=== PATIENT | female | born 1975 | race Caucasian/White ===

== ENCOUNTER 2016-08-09 21:49 | Observation (INO) | payer SELFPAY ==
[~2016-08-09] VITALS: Ht 160 cm; Wt 52.0 kg
[2016-08-09 22:02] VITALS: BP 110/59; PULSE 80; RESP 16; TEMP 97.9; O2SAT 98
[2016-08-09] MEDS ORDERED: SODIUM CHLOR 0.9% 1000 ML INJ 1,000 ML IV SCH ×2 (22:08→23:42)
[2016-08-09] MEDS ORDERED: SODIUM CHLORIDE 0.9% FLUSH 5 ML FLUSH IV FLUSH PRN (22:15)
--- NOTE | 2016-08-09 22:28 | PD ---
HPI Chief Complaint: Anxiety Time Seen by Provider: 22:00 Travel History International Travel<30 days: No Contact w/Intl Traveler<30days: No Traveled to known affect area: No History of Present Illness HPI Patient is a 40-year-old female presenting to the emergency department via EMS. Patient presents with vague complaints. She thought her car today [place] she felt as if the car next to her was pressuring her to get over, she attempted to get over but the steering wheel vibrated she stated that it felt like it was vibrating wrong and she got off the [place] went to a gas station parked her car smoke cigarettes and she felt a zap on her shoulder. She reports seeing a beetle-like bug on her car seat. Patient denies any psychiatric history, she denies any trouble sleeping or eating. She was driving from [place] to [place]. She does report being in an emergency department last week with menstrual issues, she reports a negative workup at that time. She denies any significant past medical history. [facility] Past Medical History Medical History: Denies Significant Hx ?: Not LMP: 07/31/16 Past Surgical History Surgical History: No Previous Surgery Social History Alcohol Use: Yes (rare) Tobacco Use: Yes Substance Use: Yes (occasional marijuana) Allergies-Medications (Allergen,Severity, Reaction): Coded Allergies: No Known Allergies (Unverified , 08/09/16) Reported Meds & Prescriptions Reported Meds & Active Scripts Active No Active Prescriptions or Reported Medications Review of Systems Except as stated in HPI: all other systems reviewed are Neg Psychiatric: Positive: Anxiety Physical Exam Narrative GENERAL: Well-developed, well-nourished, alert female. Resting comfortably in no acute distress. Appears anxious. SKIN: Warm and dry. HEAD: Atraumatic. Normocephalic. EYES: Pupils equal and round. No scleral icterus. No injection or drainage. ENT: No nasal bleeding or discharge. Mucous membranes pink and moist. NECK: Trachea midline. No JVD. CARDIOVASCULAR: Regular rate and rhythm. RESPIRATORY: No accessory muscle use. Clear to auscultation. Breath sounds equal bilaterally. GASTROINTESTINAL: Abdomen soft, non-tender, nondistended. Hepatic and splenic margins not palpable. MUSCULOSKELETAL: Extremities without clubbing, cyanosis, or edema. No obvious deformities. NEUROLOGICAL: Awake and alert. No obvious cranial nerve deficits. Motor grossly within normal limits. Five out of 5 muscle strength in the arms and legs. Normal speech. PSYCHIATRIC: Anxious mood and affect; insight and judgment normal. Data Data Last Documented VS Vital Signs Date Time Temp Pulse Resp B/P Pulse Ox O2 Delivery O2 Flow Rate FiO2 08/09/16 23:08 97.9 83 16 100/58 97 Room Air Orders Complete Blood Count With Diff (08/09/16 22:08) Comprehensive Metabolic Panel (08/09/16 22:08) Creatine Kinase (Cpk) (08/09/16 22:08) Thyroid Stimulating Hormone (08/09/16 22:08) Urinalysis - C+S If Indicated (08/09/16 22:08) Blood Glucose (08/09/16 22:08) Ecg Monitoring (08/09/16 22:08) Iv Access Insert/Monitor (08/09/16 22:08) Oximetry (08/09/16 22:08) Sodium Chloride 0.9% Flush (Ns Flush) (08/09/16 22:15) Sodium Chlor 0.9% 1000 Ml Inj (Ns 1000 M (08/09/16 22:08) Drug Screen, Random Urine (08/09/16 22:09) Psych Screen (08/09/16 22:16) Urine Culture (08/09/16 22:24) Ceftriaxone Inj (Rocephin Inj) (08/09/16 23:00) Admit Order (Ed Use Only) (08/09/16 23:42) Labs Laboratory Tests Test 08/09/16 22:24 White Blood Count 5.7 TH/MM3 Red Blood Count 4.00 MIL/MM3 Hemoglobin 12.4 GM/DL Hematocrit 35.8 % Mean Corpuscular Volume 89.7 FL Mean Corpuscular Hemoglobin 31.1 PG Mean Corpuscular Hemoglobin 34.7 % Concent Red Cell Distribution Width 13.3 % Platelet Count 227 TH/MM3 Mean Platelet Volume 8.7 FL Neutrophils (%) (Auto) 58.6 % Lymphocytes (%) (Auto) 28.1 % Monocytes (%) (Auto) 11.1 % Eosinophils (%) (Auto) 1.7 % Basophils (%) (Auto) 0.5 % Neutrophils # (Auto) 3.3 TH/MM3 Lymphocytes # (Auto) 1.6 TH/MM3 Monocytes # (Auto) 0.6 TH/MM3 Eosinophils # (Auto) 0.1 TH/MM3 Basophils # (Auto) 0.0 TH/MM3 CBC Comment DIFF FINAL Differential Comment Urine Color YELLOW Urine Turbidity CLOUDY Urine pH 7.5 Urine Specific [place] 1.009 Urine Protein 100 mg/dL Urine Glucose (UA) NEG mg/dL Urine Ketones NEG mg/dL Urine Occult Blood LARGE Urine Nitrite NEG Urine Bilirubin NEGATIVE Urine Urobilinogen 0.2 MG/DL Urine Leukocyte Esterase LARGE Urine RBC 10-14 /hpf Urine WBC 9-14 /hpf Urine Squamous Epithelial > 8 /hpf Cells Urine Bacteria FEW /hpf Urine White Blood Cell Casts /lpf Microscopic Urinalysis Comment CATH-CULTURE IND Sodium Level 140 MEQ/L Potassium Level 3.9 MEQ/L Chloride Level 106 MEQ/L Carbon Dioxide Level 27.9 MEQ/L Anion Gap 6 MEQ/L Blood Urea Nitrogen 6 MG/DL Creatinine 0.70 MG/DL Estimat Glomerular Filtration 93 ML/MIN Rate Random Glucose 98 MG/DL Calcium Level 8.9 MG/DL Total Bilirubin 0.3 MG/DL Aspartate Amino Transf 16 U/L (AST/SGOT) Alanine Aminotransferase 13 U/L (ALT/SGPT) Alkaline Phosphatase 44 U/L Total Creatine Kinase 60 U/L Total Protein 7.0 GM/DL Albumin 3.8 GM/DL Thyroid Stimulating Hormone 1.660 uIU/ML 3rd Gen [facility] Medical Decision Making Medical Screen Exam Complete: Yes Emergency Medical Condition: Yes Interpretation(s) Vital Signs Date Time Temp Pulse Resp B/P Pulse Ox O2 Delivery O2 Flow Rate FiO2 08/09/16 22:02 97.9 80 16 110/59 98 Differential Diagnosis Mood disorder versus substance abuse versus psychosis versus UTI versus other Narrative Course Patient is a 40-year-old female who is brought in by EMS after suffering what appeared to be a panic attack [place]. Patient appeared altered on arrival and was not answering questions entirely appropriately. Her vital signs are stable, labs and imaging ordered and pending. Patient was traveling from [place] to [place], she did purchase a new vehicle and [employer] today. She has no suicidal or homicidal ideations. Patient denies any previous psychiatric history. She endorses occasional marijuana use, none today. CBC is unremarkable Chemistry with no acute issues Urinalysis is indicative of urinary tract infection Psych screen was ordered, psychiatric aide evaluated patient. She does not feel that patient is a harm to herself or anyone else. She was answering questions appropriately for her. Patient is from [place], traveling to [place], she has no friends or family in the area. Patient is drowsy and behavior appears altered. At this time it is feasible in the patient's best interest to keep patient under observation for IV antibiotics. [facility] paged for admission. Discussed with my attending physician Dr. Gama who is in agreement with plan. Dr. Blandon accepted admission, orders placed. Pt is agreeable to plan. Diagnosis Primary Impression: Alteration of behavior in patient 21 years to 64 years of age Additional Impression: Urinary tract infection Qualified Code: N39.0 - Urinary tract infection with hematuria, site unspecified Admitting Information Admitting Physician Requests: Observation Scripts No Active Prescriptions or Reported Meds Condition: Marya Kent Aug 09, 2016 22:28
[2016-08-09 22:36] LABS: AUTOMATED NEUTROPHIL # 3.3 TH/MM3 (1.8-7.7); BASOPHIL % 0.5 % (0.0-2.0); EOSINOPHIL # 0.1 TH/MM3 (0-0.4); EOSINOPHIL % 1.7 % (0.0-4.0); HEMATOCRIT 35.8 % (35.0-46.0); HEMO FLAGS DIFF FINAL; LYMPH % 28.1 % (9.0-44.0); LYMPHOCYTE # 1.6 TH/MM3 (1.0-4.8); MEAN CELL VOLUME 89.7 FL (80.0-100.0); MEAN CORPUSCULAR HEMOGLOBIN 31.1 PG (27.0-34.0); MEAN CORPUSCULAR HGB CONC 34.7 % (32.0-36.0); MONO % 11.1 % (0.0-8.0); NEUT % 58.6 % (16.0-70.0); PLATELET COUNT 227 TH/MM3 (150-450); RED CELL DISTRIBUTION WIDTH 13.3 % (11.6-17.2); WHITE BLOOD COUNT 5.7 TH/MM3 (4.0-11.0)
[2016-08-09 22:41] LABS: BLOOD, URINE LARGE (NEG); GLUCOSE,URINE NEG (NEG); KETONE, URINE NEG (NEG); NITRITE,URINE NEG (NEG); PH, URINE 7.5 (5.0-8.5); URINE COLOR YELLOW (YELLW/STRAW)
[2016-08-09 22:42] LABS: BACTERIA, URINE FEW /hpf; SQUAMOUS EPITHELIAL CELL URINE > 8 /hpf (0-5)
[2016-08-09 22:43] LABS: COMMENT (UR) CATH-CULTURE IND; CULTURE IF INDICATED CATH CULTURE IND
[2016-08-09 22:52] LABS: ALT (GPT) 13 U/L (10-53)
[2016-08-09 22:55] LABS: ANION GAP 6 MEQ/L (5-15); AST (GOT) 16 U/L (15-37); BICARBONATE 27.9 MEQ/L (21.0-32.0); BLOOD UREA NITROGEN 6 MG/DL (7-18); CHLORIDE 106 MEQ/L (98-107); GLOMERULAR FILTRATION RATE 93 ML/MIN (>89); POTASSIUM 3.9 MEQ/L (3.5-5.1); SODIUM (NA) 140 MEQ/L (136-145)
[2016-08-09 22:57] VITALS: PULSE 70
[2016-08-09] MEDS ORDERED: cefTRIAXone INJ 2,000 MG in SODIUM CHLORIDE 0.9% INJ 100 ML IV ONE (23:00)
[2016-08-09 23:01] LABS: ALKALINE PHOSPHATASE 44 U/L (45-117); TOTAL BILIRUBIN ADULT 0.3 MG/DL (0.2-1.0)
[2016-08-09 23:04] LABS: CREATINE KINASE 60 U/L (26-192)
[2016-08-09 23:08] VITALS: BP 100/58; PULSE 83; RESP 16; TEMP 97.9; O2SAT 97
[2016-08-09] MEDS ORDERED: NALOXONE HCL 0.4 MG/ML AMP IV PRN (23:45)
[2016-08-09] MEDS ORDERED: SODIUM CHLORIDE 0.9% FLUSH 10 ML FLUSH IV FLUSH PRN (23:45)
[2016-08-09 23:55] LABS: AMPHETAMINE, URINE NEG (NEG); BARBITURATES, URINE NEG (NEG); COCAINE, URINE NEG (NEG)
[2016-08-10] MEDS ORDERED: CIPROFLOXACIN 400 MG PREMIX 200 ML IV SCH
[2016-08-10] MEDS ORDERED: SODIUM CHLORIDE 0.9% FLUSH 10 ML FLUSH IV FLUSH SCH (09:00)
[2016-08-11] MEDS ORDERED: CIPR500T2 PO (01:12)
[2016-08-11] MEDS ORDERED: METR-1 PO (01:12)
[2016-08-11] MEDS ORDERED: CIPR-9 PO (11:37)
== END 2016-08-10 01:33 | disposition left against medical advice (07) ==
LOC: NEPD 21:49 → NEDA 23:44
PROVIDERS: ADMIT Internal Medicine; ATTEND Internal Medicine
DX: N39.0 Urinary tract infection, site not specified (principal); R31.9 Hematuria, unspecified; R40.0 Somnolence; F41.9 Anxiety disorder, unspecified; F17.210 Nicotine dependence, cigarettes, uncomplicated; F12.90 Cannabis use, unspecified, uncomplicated
CPT/HCPCS: 80053; 80307; 81001; 82550; 84443; 85025; 87086; 96361; 96365; 99285; G0378; J0696; J0744; J7030

== ENCOUNTER 2016-08-10 22:47 | Emergency (ER) | payer SELFPAY ==
[~2016-08-10] VITALS: Ht 165.1 cm; Wt 65.0 kg
[2016-08-10 23:13] VITALS: BP 113/71; PULSE 85; RESP 16; TEMP 98.5; O2SAT 99
--- NOTE | 2016-08-10 23:28 | PD ---
HPI Chief Complaint: Psychiatric Symptoms Time Seen by Provider: 11:20 Travel History International Travel<30 days: No Contact w/Intl Traveler<30days: No Traveled to known affect area: No History of Present Illness HPI This is a 40-year-old female who presents via EMS for evaluation. Report is primarily obtained by paramedics. They report that the patient was found wandering around the police station today. She was apparently wandering all day long from 9 AM in the morning. On route she was complaining of various pains in her head and her chest. The paramedics also note that she had a new Dianne Sigifredo at the police station. History is somewhat limited from the patient secondary to her bizarre behavior and affect. The patient reports that she is from [place], she is traveling [place] to visit family. She does endorse some vague pain in her chest and her head which started sometime this evening. No obvious apparent aggravating or relieving factors or associated symptoms. She denies any psychiatric history. She endorses occasional marijuana use. Denies any other drug use. Per chart review this patient was seen here yesterday and was admitted for altered behavior. She apparently left AGAINST MEDICAL ADVICE early in the morning. She had a urine specimen which has no growth. No other complaints at this time. [facility] Past Medical History Anxiety: Yes Immunizations Current: Yes Tetanus Vaccination: Never Vaccinated Influenza Vaccination: No ?: Unknown Social History Alcohol Use: Yes (rare) Tobacco Use: Yes Substance Use: Yes Allergies-Medications (Allergen,Severity, Reaction): Coded Allergies: No Known Allergies (Unverified , 08/10/16) Reported Meds & Prescriptions Reported Meds & Active Scripts Active Cipro (Ciprofloxacin HCl) 500 Mg Tab 500 Mg PO BID 7 Days Review of Systems ROS Limitations: Altered Mental Status Except as stated in HPI: all other systems reviewed are Neg Physical Exam Exam Limitations: Altered Mental Status Narrative GENERAL: Well-developed well-nourished female in no acute distress SKIN: Warm and dry. HEAD: Atraumatic. Normocephalic. EYES: Pupils equal and round. No scleral icterus. No injection or drainage. ENT: No nasal bleeding or discharge. Mucous membranes pink and moist. NECK: Trachea midline. No JVD. CARDIOVASCULAR: Regular rate and rhythm. No murmur appreciated. RESPIRATORY: No accessory muscle use. Clear to auscultation. Breath sounds equal bilaterally. GASTROINTESTINAL: Abdomen soft, non-tender, nondistended. Hepatic and splenic margins not palpable. MUSCULOSKELETAL: No obvious deformities. No clubbing. NEUROLOGICAL: Awake and alert. No obvious cranial nerve deficits. Motor grossly within normal limits. Normal speech. Neck supple full range of motion. PSYCHIATRIC: Flat affect. Insight and judgment appear markedly limited. Data Data Last Documented VS Vital Signs Date Time Temp Pulse Resp B/P Pulse Ox O2 Delivery O2 Flow Rate FiO2 08/11/16 07:41 78 20 132/65 08/11/16 04:52 97 Room Air 08/10/16 23:13 98.5 Orders Electrocardiogram (08/10/16 23:20) Creatine Kinase (Cpk) (08/10/16 23:20) Troponin I (08/10/16 23:20) Chest, Single Ap (08/10/16 23:20) Ecg Monitoring (08/10/16 23:20) Iv Access Insert/Monitor (08/10/16 23:20) Oximetry (08/10/16 23:20) Sodium Chloride 0.9% Flush (Ns Flush) (08/10/16 23:30) Ed Urine Pregnancytest Poc (08/10/16 23:20) Ct Brain W/O Iv Contrast(Rout) (08/10/16 ) ^ Sitter (08/10/16 23:22) Complete Blood Count With Diff (08/10/16 23:33) Comprehensive Metabolic Panel (08/10/16 23:33) Psych Screen (08/11/16 03:00) Lorazepam (Ativan) (08/11/16 11:15) Ciprofloxacin (Cipro) (08/11/16 11:45) Labs Laboratory Tests Test 08/11/16 00:30 White Blood Count 6.0 TH/MM3 Red Blood Count 4.03 MIL/MM3 Hemoglobin 12.1 GM/DL Hematocrit 36.8 % Mean Corpuscular Volume 91.4 FL Mean Corpuscular Hemoglobin 30.1 PG Mean Corpuscular Hemoglobin 32.9 % Concent Red Cell Distribution Width 13.3 % Platelet Count 206 TH/MM3 Mean Platelet Volume 8.6 FL Neutrophils (%) (Auto) 56.0 % Lymphocytes (%) (Auto) 31.4 % Monocytes (%) (Auto) 10.1 % Eosinophils (%) (Auto) 2.0 % Basophils (%) (Auto) 0.5 % Neutrophils # (Auto) 3.4 TH/MM3 Lymphocytes # (Auto) 1.9 TH/MM3 Monocytes # (Auto) 0.6 TH/MM3 Eosinophils # (Auto) 0.1 TH/MM3 Basophils # (Auto) 0.0 TH/MM3 CBC Comment DIFF FINAL Differential Comment Sodium Level 141 MEQ/L Potassium Level 3.6 MEQ/L Chloride Level 108 MEQ/L Carbon Dioxide Level 27.0 MEQ/L Anion Gap 6 MEQ/L Blood Urea Nitrogen 4 MG/DL Creatinine 0.70 MG/DL Estimat Glomerular Filtration 93 ML/MIN Rate Random Glucose 91 MG/DL Calcium Level 8.9 MG/DL Total Bilirubin 0.3 MG/DL Aspartate Amino Transf 16 U/L (AST/SGOT) Alanine Aminotransferase 14 U/L (ALT/SGPT) Alkaline Phosphatase 42 U/L Total Creatine Kinase 47 U/L Troponin I LESS THAN 0.02 NG/ML Total Protein 7.1 GM/DL Albumin 3.9 GM/DL MDM Medical Decision Making Medical Screen Exam Complete: Yes Emergency Medical Condition: Yes Medical Record Reviewed: Yes Interpretation(s) ED urine negative Chest x-ray no acute abnormalities CBC unremarkable ekg sinus aurora rate 55, HI interval 114. Differential Diagnosis Schizophrenia, bipolar disorder, encephalitis, acute psychosis, substance induced mood disorder, meningitis, other toxic disturbance Narrative Course This is a 40-year-old female who was admitted yesterday for altered mental status but left AGAINST MEDICAL ADVICE. She presents once again after being found wandering around in the police department for several hours. She has a very bizarre affect, she is a very poor historian. Therefore the patient was placed under Tamayo act. A sitter has been ordered. She denies any psychiatric history. At the end of my shift the patient was signed out pending CT imaging and lab work for disposition, likely admission versus psychiatric consultation. Procedures EKG Prior to Arrival: Yes Diagnosis Primary Impression: Alteration of behavior in patient 21 years to 64 years of age Scripts Ciprofloxacin (Cipro)500 Mg Gra034 Mg PO BID 7 Days Ref 0 Prov:Marya Dale 08/11/16 Cm Arevalo Aug 10, 2016 23:28
[2016-08-10] MEDS ORDERED: SODIUM CHLORIDE 0.9% FLUSH 5 ML FLUSH IV FLUSH PRN (23:30)
--- NOTE | 2016-08-11 00:28 | RADRPT ---
EXAM DATE/TIME: 08/11/2016 00:11 [facility] COMPARISON: No previous studies available for comparison. INDICATIONS : Per history chest tighness as patient is despondent and doesn.t answer questions. MEDICAL HISTORY : Unobtainable SURGICAL HISTORY : Unobtainable ENCOUNTER: Initial ACUITY: 1 day PAIN SCORE: Non-responsive. LOCATION: Bilateral chest FINDINGS: A single view of the chest demonstrates the lungs to be symmetrically aerated without evidence of mas s, infiltrate or effusion. The cardiomediastinal contours are unremarkable. Osseous structures are intact. CONCLUSION: Normal examination. Right thoracic scoliosis Narciso Carlisle MD on August 11, 2016 at 0:26 Board Certified Radiologist. This report was verified electronically.
[2016-08-11 00:43] LABS: AUTOMATED NEUTROPHIL # 3.4 TH/MM3 (1.8-7.7); BASOPHIL % 0.5 % (0.0-2.0); EOSINOPHIL # 0.1 TH/MM3 (0-0.4); HEMATOCRIT 36.8 % (35.0-46.0); HEMO FLAGS DIFF FINAL; LYMPH % 31.4 % (9.0-44.0); LYMPHOCYTE # 1.9 TH/MM3 (1.0-4.8); MEAN CELL VOLUME 91.4 FL (80.0-100.0); MEAN CORPUSCULAR HEMOGLOBIN 30.1 PG (27.0-34.0); MEAN CORPUSCULAR HGB CONC 32.9 % (32.0-36.0); MONO % 10.1 % (0.0-8.0); PLATELET COUNT 206 TH/MM3 (150-450); RED BLOOD COUNT 4.03 MIL/MM3 (4.00-5.30); RED CELL DISTRIBUTION WIDTH 13.3 % (11.6-17.2)
[2016-08-11 00:47] VITALS: O2SAT 98
[2016-08-11 01:10] LABS: ALT (GPT) 14 U/L (10-53); ANION GAP 6 MEQ/L (5-15); AST (GOT) 16 U/L (15-37); BLOOD UREA NITROGEN 4 MG/DL (7-18); CHLORIDE 108 MEQ/L (98-107); GLOMERULAR FILTRATION RATE 93 ML/MIN (>89); POTASSIUM 3.6 MEQ/L (3.5-5.1); SODIUM (NA) 141 MEQ/L (136-145)
[2016-08-11] MEDS ORDERED: CIPR500T2 PO (01:12)
[2016-08-11] MEDS ORDERED: METR-1 PO (01:12)
[2016-08-11 01:13] LABS: ALKALINE PHOSPHATASE 42 U/L (45-117); TOTAL BILIRUBIN ADULT 0.3 MG/DL (0.2-1.0)
[2016-08-11 01:14] LABS: CREATINE KINASE 47 U/L (26-192)
--- NOTE | 2016-08-11 01:24 | RADRPT ---
EXAM DATE/TIME: 08/11/2016 01:16 [facility] COMPARISON: No previous studies available for comparison. INDICATIONS : Altered mental status. RADIATION DOSE: 32.99 CTDIvol (mGy) MEDICAL HISTORY : None SURGICAL HISTORY : None. ENCOUNTER: Initial ACUITY: 1 day PAIN SCALE: Non-responsive LOCATION: cranial TECHNIQUE: Multiple contiguous axial images were obtained of the head. Using automated exposure control and adj ustment of the mA and/or kV according to patient size, radiation dose was kept as low as reasonably a chievable to obtain optimal diagnostic quality images. DICOM format image data is available electro nically for review and comparison. FINDINGS: CEREBRUM: The ventricles are normal for age. No evidence of midline shift, mass lesion, hemorrhage or acute in farction. No extra-axial fluid collections are seen. Bilateral basal ganglia calcifications are note d POSTERIOR FOSSA: The cerebellum and brainstem are intact. The 4th ventricle is midline. The cerebellopontine angle i s unremarkable. EXTRACRANIAL: The visualized portion of the orbits is intact. SKULL: The calvaria is intact. No evidence of skull fracture. CONCLUSION: Normal examination. Narciso Carlisle MD on August 11, 2016 at 1:23 Board Certified Radiologist. This report was verified electronically.
--- NOTE | 2016-08-11 01:59 | PD ---
Physical Exam Date Seen by Provider: Aug 11, 2016 Time Seen by Provider: 01:56 Data Data Last Documented VS Vital Signs Date Time Temp Pulse Resp B/P Pulse Ox O2 Delivery O2 Flow Rate FiO2 08/11/16 00:47 98 Room Air 08/10/16 23:13 98.5 85 16 113/71 Orders Electrocardiogram (08/10/16 23:20) Creatine Kinase (Cpk) (08/10/16 23:20) Troponin I (08/10/16 23:20) Chest, Single Ap (08/10/16 23:20) Ecg Monitoring (08/10/16 23:20) Iv Access Insert/Monitor (08/10/16 23:20) Oximetry (08/10/16 23:20) Sodium Chloride 0.9% Flush (Ns Flush) (08/10/16 23:30) Ed Urine Pregnancytest Poc (08/10/16 23:20) Ct Brain W/O Iv Contrast(Rout) (08/10/16 ) ^ Sitter (08/10/16 23:22) Complete Blood Count With Diff (08/10/16 23:33) Comprehensive Metabolic Panel (08/10/16 23:33) Labs Laboratory Tests Test 08/11/16 00:30 White Blood Count 6.0 TH/MM3 Red Blood Count 4.03 MIL/MM3 Hemoglobin 12.1 GM/DL Hematocrit 36.8 % Mean Corpuscular Volume 91.4 FL Mean Corpuscular Hemoglobin 30.1 PG Mean Corpuscular Hemoglobin 32.9 % Concent Red Cell Distribution Width 13.3 % Platelet Count 206 TH/MM3 Mean Platelet Volume 8.6 FL Neutrophils (%) (Auto) 56.0 % Lymphocytes (%) (Auto) 31.4 % Monocytes (%) (Auto) 10.1 % Eosinophils (%) (Auto) 2.0 % Basophils (%) (Auto) 0.5 % Neutrophils # (Auto) 3.4 TH/MM3 Lymphocytes # (Auto) 1.9 TH/MM3 Monocytes # (Auto) 0.6 TH/MM3 Eosinophils # (Auto) 0.1 TH/MM3 Basophils # (Auto) 0.0 TH/MM3 CBC Comment DIFF FINAL Differential Comment Sodium Level 141 MEQ/L Potassium Level 3.6 MEQ/L Chloride Level 108 MEQ/L Carbon Dioxide Level 27.0 MEQ/L Anion Gap 6 MEQ/L Blood Urea Nitrogen 4 MG/DL Creatinine 0.70 MG/DL Estimat Glomerular Filtration 93 ML/MIN Rate Random Glucose 91 MG/DL Calcium Level 8.9 MG/DL Total Bilirubin 0.3 MG/DL Aspartate Amino Transf 16 U/L (AST/SGOT) Alanine Aminotransferase 14 U/L (ALT/SGPT) Alkaline Phosphatase 42 U/L Total Creatine Kinase 47 U/L Troponin I LESS THAN 0.02 NG/ML Total Protein 7.1 GM/DL Albumin 3.9 GM/DL [facility] Medical Record Reviewed: Yes Supervised Visit with VIKY: Yes Interpretation(s) Laboratory Tests Test 08/11/16 00:30 White Blood Count 6.0 TH/MM3 Red Blood Count 4.03 MIL/MM3 Hemoglobin 12.1 GM/DL Hematocrit 36.8 % Mean Corpuscular Volume 91.4 FL Mean Corpuscular Hemoglobin 30.1 PG Mean Corpuscular Hemoglobin 32.9 % Concent Red Cell Distribution Width 13.3 % Platelet Count 206 TH/MM3 Mean Platelet Volume 8.6 FL Neutrophils (%) (Auto) 56.0 % Lymphocytes (%) (Auto) 31.4 % Monocytes (%) (Auto) 10.1 % Eosinophils (%) (Auto) 2.0 % Basophils (%) (Auto) 0.5 % Neutrophils # (Auto) 3.4 TH/MM3 Lymphocytes # (Auto) 1.9 TH/MM3 Monocytes # (Auto) 0.6 TH/MM3 Eosinophils # (Auto) 0.1 TH/MM3 Basophils # (Auto) 0.0 TH/MM3 CBC Comment DIFF FINAL Differential Comment Sodium Level 141 MEQ/L Potassium Level 3.6 MEQ/L Chloride Level 108 MEQ/L Carbon Dioxide Level 27.0 MEQ/L Anion Gap 6 MEQ/L Blood Urea Nitrogen 4 MG/DL Creatinine 0.70 MG/DL Estimat Glomerular Filtration 93 ML/MIN Rate Random Glucose 91 MG/DL Calcium Level 8.9 MG/DL Total Bilirubin 0.3 MG/DL Aspartate Amino Transf 16 U/L (AST/SGOT) Alanine Aminotransferase 14 U/L (ALT/SGPT) Alkaline Phosphatase 42 U/L Total Creatine Kinase 47 U/L Troponin I LESS THAN 0.02 NG/ML Total Protein 7.1 GM/DL Albumin 3.9 GM/DL Last 24 hours Impressions Chest X-Ray 08/10/16 [id number] Signed Impressions: Service Date/Time: Thursday, August 11, 2016 00:11 - CONCLUSION: Normal examination. Right thoracic scoliosis Narciso Carlisle MD Head CT 08/10/16 0000 Signed Impressions: Service Date/Time: Thursday, August 11, 2016 01:16 - CONCLUSION: Normal examination. Narciso Carlisle MD Differential Diagnosis MDM: High Differential diagnoses: Schizophrenia, schizoaffective disorder, bipolar, anxiety, depression, adjustment reaction, mood disorder NOS, ODD, depressive disorder NOS, dementia, dementia with agitation, psychosis NOS, substance induced mood disorder, intermittent explosive disorder, Asperger syndrome, infection,electrolyte abnormality, malingering. Narrative Course Mental health screening discussed with the patient. Psychiatric screen ordered. The patient has been medically cleared. She is under Tamayo act. I discussed the case with Dr. Buckley the on-call hospitalist. He has declined the admission today. He feels that the patient's presentation is a psychiatric etiology and that he would be happy to be [employer] consultant if any medical issues come up. The patient's chest x-ray, CT, chemistries including troponin and EKG are negative. Patient's urine culture from yesterday is not growing any organisms at this time. I suspect this was a contaminated specimen. This is alteration of behavior inpatient 21 years to 64 years of age Diagnosis Primary Impression: Alteration of behavior in patient 21 years to 64 years of age Condition: Stable Cali Espinosa Aug 11, 2016 01:59
[2016-08-11 04:52] VITALS: BP 121/97; PULSE 78; O2SAT 97
[2016-08-11 07:41] VITALS: BP 132/65; PULSE 78; RESP 20
--- NOTE | 2016-08-11 10:04 | EKG ---
Date Performed: 08/11/2016 Time Performed: 00:48:42 PTAGE: 40 years EKG: Baseline artifact is present. Probable sinus bradycardia with short MN interval POSSIBLE RI GHT VENTRICULAR CONDUCTION DELAY BORDERLINE ECG NO PREVIOUS TRACING DOCTOR: Marcio Bishop Interpretating Date/Time 08/11/2016 10:02:55
[2016-08-11] MEDS ORDERED: LORazepam 1 MG TAB PO ONE (11:15)
[2016-08-11] MEDS ORDERED: CIPR-9 PO (11:37)
--- NOTE | 2016-08-11 11:37 | PD ---
Physical Exam Date Seen by Provider: Aug 11, 2016 Time Seen by Provider: 11:35 Narrative For full history and physical examination please see previous provider's note. I am providing patient with a prescription for ciprofloxacin due to her urinary tract infection that was diagnosed on her previous admission. Data Data Last Documented VS Vital Signs Date Time Temp Pulse Resp B/P Pulse Ox O2 Delivery O2 Flow Rate FiO2 08/11/16 07:41 78 20 132/65 08/11/16 04:52 97 Room Air 08/10/16 23:13 98.5 Orders Electrocardiogram (08/10/16 23:20) Creatine Kinase (Cpk) (08/10/16 23:20) Troponin I (08/10/16 23:20) Chest, Single Ap (08/10/16 23:20) Ecg Monitoring (08/10/16 23:20) Iv Access Insert/Monitor (08/10/16 23:20) Oximetry (08/10/16 23:20) Sodium Chloride 0.9% Flush (Ns Flush) (08/10/16 23:30) Ed Urine Pregnancytest Poc (08/10/16 23:20) Ct Brain W/O Iv Contrast(Rout) (08/10/16 ) ^ Sitter (08/10/16 23:22) Complete Blood Count With Diff (08/10/16 23:33) Comprehensive Metabolic Panel (08/10/16 23:33) Psych Screen (08/11/16 03:00) Lorazepam (Ativan) (08/11/16 11:15) Ciprofloxacin (Cipro) (08/11/16 11:45) Labs Laboratory Tests Test 08/11/16 00:30 White Blood Count 6.0 TH/MM3 Red Blood Count 4.03 MIL/MM3 Hemoglobin 12.1 GM/DL Hematocrit 36.8 % Mean Corpuscular Volume 91.4 FL Mean Corpuscular Hemoglobin 30.1 PG Mean Corpuscular Hemoglobin 32.9 % Concent Red Cell Distribution Width 13.3 % Platelet Count 206 TH/MM3 Mean Platelet Volume 8.6 FL Neutrophils (%) (Auto) 56.0 % Lymphocytes (%) (Auto) 31.4 % Monocytes (%) (Auto) 10.1 % Eosinophils (%) (Auto) 2.0 % Basophils (%) (Auto) 0.5 % Neutrophils # (Auto) 3.4 TH/MM3 Lymphocytes # (Auto) 1.9 TH/MM3 Monocytes # (Auto) 0.6 TH/MM3 Eosinophils # (Auto) 0.1 TH/MM3 Basophils # (Auto) 0.0 TH/MM3 CBC Comment DIFF FINAL Differential Comment Sodium Level 141 MEQ/L Potassium Level 3.6 MEQ/L Chloride Level 108 MEQ/L Carbon Dioxide Level 27.0 MEQ/L Anion Gap 6 MEQ/L Blood Urea Nitrogen 4 MG/DL Creatinine 0.70 MG/DL Estimat Glomerular Filtration 93 ML/MIN Rate Random Glucose 91 MG/DL Calcium Level 8.9 MG/DL Total Bilirubin 0.3 MG/DL Aspartate Amino Transf 16 U/L (AST/SGOT) Alanine Aminotransferase 14 U/L (ALT/SGPT) Alkaline Phosphatase 42 U/L Total Creatine Kinase 47 U/L Troponin I LESS THAN 0.02 NG/ML Total Protein 7.1 GM/DL Albumin 3.9 GM/DL MDM Supervised Visit with VIKY: No Narrative Course Patient was diagnosed with a urinary tract infection on 08/09. Patient will be discharged home with her family today and will be providing her with a prescription for antibiotics. Diagnosis Primary Impression: Alteration of behavior in patient 21 years to 64 years of age Med/Other Pt SpecificInfo: Prescription(s) given Scripts Ciprofloxacin (Cipro)500 Mg Yvs033 Mg PO BID 7 Days Ref 0 Prov:Marya Dale 08/11/16 Condition: Stable Marya Dale Aug 11, 2016 11:37
[2016-08-11] MEDS ORDERED: CIPROFLOXACIN 500 MG TAB PO ONE (11:45)
== END 2016-08-11 12:41 | disposition home or self-care (01) ==
LOC: NEPD 22:47
DX: R41.82 Altered mental status, unspecified (principal); N39.0 Urinary tract infection, site not specified; F41.9 Anxiety disorder, unspecified; R94.31 Abnormal electrocardiogram [ECG] [EKG]; Z72.0 Tobacco use
CPT/HCPCS: 70450; 71010; 80053; 82550; 84484; 84703; 85025; 93005